=== PATIENT | male | born 1985 | race Caucasian/White ===

== ENCOUNTER 2021-04-11 16:38 | Emergency (ER) | payer OTHER ==
[~2021-04-11] VITALS: Ht 190.5 cm; Wt 113.6 kg
--- NOTE | 2021-04-11 21:02 | ED.ADGEN ---
Past Medical History Additional Past Medical Histor: CML Past Surgical History: No Surgical History General Adult EDM: Chief Complaint: PENIS PROBLEM HPI: HPI: Patient is a 36 year old male brought in from shelter for urethral foreign body. Patient states he put 3 pieces of a Styrofoam cup at approximately 1 inch long up his urethra. The facility physician removed one of the pieces. Patient states he has some bleeding from cuts on his arms and had a little bit of bleeding from his urethra. Has done this before about 3 years ago. History of psychiatric issues and CML. Patient states he put the foreign bodies in his urethra because he wanted to get attention from the facility for not feeling his needs were met. Tetanus up-to-date, is vaccinated against Covid Review of Systems: Review of Systems: All other systems within normal limits except for as noted in the HPI Current Medications: Current Medications Medications (Trade) Dose Ordered Sig/Ziyad Start Time Stop Time Status Last Admin Dose Admin Fentanyl Citrate (Fentanyl 2ml Vial) 75 mcg 1X ONCE 04/12/21 02:00 04/12/21 02:01 Info (CONTRAST GIVEN -- Rx MONITORING) 1 each PRN DAILY PRN 04/11/21 22:00 04/13/21 21:59 Iohexol (Omnipaque 300 Mg/ml) 75 ml 1X ONCE 04/11/21 22:00 04/11/21 22:01 DC 04/11/21 22:01 75 ML Allergies: Allergies: Allergies Coded Allergies Type Severity Reaction Last Updated Verified No Known Drug Allergies 04/11/21 No Physical Exam: PE: Constitutional: Well developed, well nourished, no acute distress, non-toxic appearance. [] HENT: Normocephalic, atraumatic, bilateral external ears normal, nose normal. [] Eyes: PERRLA, conjunctiva normal, no discharge. [] Neck: No rigidity, supple, no stridor. [] Cardiovascular: Regular rate and rhythm, brisk cap refill [] Lungs & Thorax: Non labored symmetric respirations, no tachypnea or respiratory distress [] Abdomen: Soft, nondistended. Skin: Warm, dry, no erythema, no rash. [] : No blood at meatus, uncircumcised, no irregularities or swelling Back: Unremarkable Extremities: No deformities, range of motion grossly intact, no lower extremity edema [] Neurologic: Alert and oriented X 3, no focal deficits noted. [] Psychologic: Affect normal, judgement normal, mood normal. [] Current Patient Data: Labs: Laboratory Tests Test 04/11/21 21:30 White Blood Count 7.7 x10^3/uL (4.0-11.0) Red Blood Count 3.96 x10^6/uL (4.30-5.70) L Hemoglobin 12.7 g/dL (13.0-17.5) L Hematocrit 37.7 % (39.0-53.0) L Mean Corpuscular Volume 95 fL (79-100) Mean Corpuscular Hemoglobin 32 pg (25-35) Mean Corpuscular Hemoglobin Concent 34 g/dL (31-37) Red Cell Distribution Width 13.9 % (11.5-14.5) Platelet Count 210 x10^3/uL (140-400) Neutrophils (%) (Auto) 64 % (31-73) Lymphocytes (%) (Auto) 23 % (24-48) L Monocytes (%) (Auto) 8 % (0-9) Eosinophils (%) (Auto) 5 % (0-3) H Basophils (%) (Auto) 1 % (0-3) Neutrophils # (Auto) 4.9 x10^3/uL (1.8-7.7) Lymphocytes # (Auto) 1.8 x10^3/uL (1.0-4.8) Monocytes # (Auto) 0.6 x10^3/uL (0.0-1.1) Eosinophils # (Auto) 0.3 x10^3/uL (0.0-0.7) Basophils # (Auto) 0.0 x10^3/uL (0.0-0.2) Sodium Level 142 mmol/L (136-145) Potassium Level 4.0 mmol/L (3.5-5.1) Chloride Level 105 mmol/L (98-107) Carbon Dioxide Level 29 mmol/L (21-32) Anion Gap 8 (6-14) Blood Urea Nitrogen 15 mg/dL (8-26) Creatinine 1.1 mg/dL (0.7-1.3) Estimated GFR (Cockcroft-Gault) 74.9 BUN/Creatinine Ratio 14 (6-20) Glucose Level 89 mg/dL (70-99) Calcium Level 8.9 mg/dL (8.5-10.1) Total Bilirubin 0.3 mg/dL (0.2-1.0) Aspartate Amino Transferase (AST) 16 U/L (15-37) Alanine Aminotransferase (ALT) 24 U/L (16-63) Alkaline Phosphatase 73 U/L (46-116) Total Protein 7.0 g/dL (6.4-8.2) Albumin 3.8 g/dL (3.4-5.0) Albumin/Globulin Ratio 1.2 (1.0-1.7) Laboratory Tests 04/11/21 21:30 Laboratory Tests 04/11/21 21:30 Vital Signs: Vital Signs Date Time Temp Pulse Resp B/P (MAP) Pulse Ox O2 Delivery O2 Flow Rate FiO2 04/12/21 01:45 76 18 116/65 (82) 98 Room Air 04/11/21 19:40 97.7 97.7 EKG: EKG: [] Heart Score: C/O Chest Pain: No Risk Factors: Risk Factors: DM, Current or recent (<one month) smoker, HTN, HLP, family history of CAD, obesity. Risk Scores: Score 0 - 3: 2.5% MACE over next 6 weeks - Discharge Home Score 4 - 6: 20.3% MACE over next 6 weeks - Admit for Clinical Observation Score 7 - 10: 72.7% MACE over next 6 weeks - Early Invasive Strategies Radiology/Procedures: Radiology/Procedures: [][facility] [address] [place] [address] IMAGING REPORT Signed PATIENT: KIMMY BARRETT ACCOUNT: [id number] : 1985 LOCATION: ER AGE: 36 SEX: M EXAM STATUS: REG ER ORD. PHYSICIAN: BHASKAR TUCKER MD REASON: Urethral foreign body PROCEDURE: CT PELVIS W/CONTRAST Exam: CT pelvis with contrast INDICATION: Urethral foreign body TECHNIQUE: Sequential axial images through the pelvis obtained following the administration of 75 mL of Isovue-370 IV contrast. Sagittal and coronal reformatted images were reconstructed from the axial data and reviewed. Exposure: One or more of the following in the visualized dose reduction techniques were utilized for this examination: 1. Automated exposure control 2. Adjustment of the MA and/or KV according to patient size 3. Use of iterative of reconstructive technique Comparisons: None FINDINGS: Moderate amount stool noted in the colon. Visualized portions of the small bowel are unremarkable. Pelvic vasculature is patent. No pelvic lymphadenopathy. Bladder is partially distended. Prostate is not enlarged. There are 2 predominantly linear low-density foreign bodies noted within the urethra. The more distal foreign body measures approximately 4.3 cm in length and the more proximal foreign body measures approximately 6.5 cm in length. No discrete fluid collection. No suspicious osseous lesions or acute fractures. Moderate osteopenia change at the left hip. Visualized lower extremity is are unremarkable. IMPRESSION: There are 2 linear low-density foreign bodies noted within the penile urethra as described above. FOR INTERNAL CODING PURPOSES Critical result: Findings discussed with Dr. Tucker at 04/11/2021 10:19 PM. RESULT CODE: (C) Electronically signed by: Liliana Jack MD (04/11/2021 10:22 PM) [facility] DICTATED and SIGNED BY: LILIANA JACK MD DATE: 04/11/21 [id number] 0 Course & Med Decision Making: Course & Med Decision Making Pertinent Labs and Imaging studies reviewed. (See chart for details) Pain controlled. Contacted [facility] (patient is a [place] inmate and unable to cross state lines, they only had a facility at [place] with room), Critical access hospital, [facility], [facility] in [place], [facility], and [facility]. All facilities stated in her room. Patient had prolonged emergency department stay due to trying to call multiple facilities and the present refusing to allow transfer to [place]. Patient having worsening symptoms, has not urinated in 12 hours, now complaining of penile discharge and swelling. Is not having suprapubic pain. Says nursing supervisor shearing unable to find a suprapubic catheter in this facility. Concerns the patient's condition is deteriorating. Reconsulted [facility] due to worsening nature and they still not able to accept patient due to being at capacity. Debbie with numerous people at the present including their nursing care partner, Ervin, and their deputy medical records secretary who finally allowed patient to be transported to [place]. Patient transported via EMS and accepted by Dr. Ambreen Gomez [] Tamika Disclaimer: Tamika Disclaimer: This electronic medical record was generated, in whole or in part, using a voice recognition dictation system. Departure Departure Impression: Primary Impression: Urethral foreign body Disposition: 02 SHORT TERM HOSPITAL Condition: GUARDED BHASKAR TUCKER MD Apr 11, 2021 21:02
[2021-04-11 21:42] LABS: BASO % 1 % (0-3); EOS # 0.3 x10^3/uL (0.0-0.7); EOS % 5 % (0-3); HEMATOCRIT 37.7 % (39.0-53.0); HEMOGLOBIN 12.7 g/dL (13.0-17.5); LYMPH # 1.8 x10^3/uL (1.0-4.8); LYMPH % 23 % (24-48); MEAN CORPUSCULAR HEMOGLOBIN 32 pg (25-35); MEAN CORPUSCULAR HGB CONC 34 g/dL (31-37); MEAN CORPUSCULAR VOLUME 95 fL (79-100); MONO # 0.6 x10^3/uL (0.0-1.1); MONO % 8 % (0-9); NEUT # 4.9 x10^3/uL (1.8-7.7); NEUT % 64 % (31-73); PLATELET COUNT 210 x10^3/uL (140-400); RED BLOOD COUNT 3.96 x10^6/uL (4.30-5.70); RED CELL DISTRIBUTION WIDTH 13.9 % (11.5-14.5); WHITE BLOOD COUNT 7.7 x10^3/uL (4.0-11.0)
[2021-04-11 21:50] LABS: CALCIUM 8.9 mg/dL (8.5-10.1); CREATININE 1.1 mg/dL (0.7-1.3); GFR 74.9
[2021-04-11 21:57] LABS: ALBUMIN 3.8 g/dL (3.4-5.0); ALBUMIN/GLOBULIN RATIO 1.2 (1.0-1.7); TOTAL BILIRUBIN 0.3 mg/dL (0.2-1.0)
[2021-04-11] MEDS ORDERED: IOHEXOL 300 MG/ML 100ML VIAL. IV ONE (22:00)
[2021-04-11] MEDS ORDERED: CONTRAST GIVEN. MC PRN (22:00)
[2021-04-11] MEDS ORDERED: fentaNYL PF VIAL 100 MCG/2 ML VIAL IVP ONE (22:00)
--- NOTE | 2021-04-11 22:24 | RAD ---
Exam: CT pelvis with contrast INDICATION: Urethral foreign body TECHNIQUE: Sequential axial images through the pelvis obtained following the administration of 75 mL of Isovue-370 IV contrast. Sagittal and coronal reformatted images were reconstructed from the axial data and reviewed. Exposure: One or more of the following in the visualized dose reduction techniques were utilized for this examination: 1. Automated exposure control 2. Adjustment of the MA and/or KV according to patient size 3. Use of iterative of reconstructive technique Comparisons: None FINDINGS: Moderate amount stool noted in the colon. Visualized portions of the small bowel are unremarkable. Pelvic vasculature is patent. No pelvic lymphadenopathy. Bladder is partially distended. Prostate is not enlarged. There are 2 predominantly linear low-density foreign bodies noted within the urethra. The more distal foreign body measures approximately 4.3 cm in length and the more proximal foreign body measures sunil roximately 6.5 cm in length. No discrete fluid collection. No suspicious osseous lesions or acute fractures. Moderate osteopenia change at the left hip. Visuali zed lower extremity is are unremarkable. IMPRESSION: There are 2 linear low-density foreign bodies noted within the penile urethra as described above. FOR INTERNAL CODING PURPOSES Critical result: Findings discussed with Dr. Bradley at 04/11/2021 10:19 PM. RESULT CODE: (C) Electronically signed by: Liliana Weinstein MD (04/11/2021 10:22 PM) [facility]
[2021-04-12] MEDS ORDERED: fentaNYL PF VIAL 100 MCG/2 ML VIAL IVP ONE (02:00)
[2021-04-12 03:00] VITALS: BP 117/59
== END 2021-04-12 03:24 | disposition short-term general hospital (02) ==
LOC: EEVIPCON 16:38 → ER 16:38
DX: T19.0XXA Foreign body in urethra, initial encounter (principal); Z20.822 Contact with and (suspected) exposure to COVID-19; X58.XXXA Exposure to other specified factors, initial encounter; Y93.89 Activity, other specified; Y92.89 Other specified places as the place of occurrence of the external cause; Y99.8 Other external cause status
CPT/HCPCS: 36415; 72193; 80053; 85025; 87426; 96374; 96376; 99285; J3010; Q9967; U0003; U0005